=== PATIENT | female | born 1945 | race Hispanic/Latino ===

== ENCOUNTER → 2019-06-07 | Outpatient (CLI) | payer MEDICARE ==
[~2019-06-07] MED LIST: ACET325T51 PO; ATOR10TA69 PO
== END | disposition home or self-care (01) ==
LOC: SHCH 09:51
PROVIDERS: ATTEND Internal Medicine Cardiovascular Disease
DX: I73.9 Peripheral vascular disease, unspecified (principal); I87.2 Venous insufficiency (chronic) (peripheral)
CPT/HCPCS: 93970

== ENCOUNTER → 2019-06-23 | Outpatient (CLI) | payer MEDICARE ==
[~2019-06-23] MED LIST changes: +IOHEXOL 350 MG/ML 100ML INFUS..BTL IV ONE; +IOHEXOL-350 50ML VIAL IV ONE
== END | disposition home or self-care (01) ==
LOC: RAH 07:27
PROVIDERS: ATTEND Internal Medicine Cardiovascular Disease
DX: I70.291 Other atherosclerosis of native arteries of extremities, right leg (principal); I71.4 Abdominal aortic aneurysm, without rupture
CPT/HCPCS: 75635; Q9967 ×2

== ENCOUNTER → 2019-07-11 | Outpatient (CLI) | payer MEDICARE | END | disposition home or self-care (01) | LOC: RAH 07:55 | PROVIDERS: ATTEND Internal Medicine Cardiovascular Disease | DX: I71.4 Abdominal aortic aneurysm, without rupture (principal); K76.0 Fatty (change of) liver, not elsewhere classified; K59.00 Constipation, unspecified; K57.30 Diverticulosis of large intestine without perforation or abscess without bleeding; I70.1 Atherosclerosis of renal artery; I70.298 Other atherosclerosis of native arteries of extremities, other extremity | CPT/HCPCS: 75635; Q9967 ×2 ==

== ENCOUNTER 2022-10-03 10:46 | Emergency (ER) | payer MEDICARE ==
[~2022-10-03] VITALS: Ht 154.9 cm; Wt 61.2 kg
[~2022-10-03 10:46] MED LIST changes: -IOHEXOL 350 MG/ML 100ML INFUS..BTL IV ONE; -IOHEXOL-350 50ML VIAL IV ONE
[2022-10-03] MEDS ORDERED: SOLU-MEDROL 40MG VIAL IJ ONE (11:30)
[2022-10-03] MEDS ORDERED: ELIM560C TP (11:38)
[2022-10-03] MEDS ORDERED: METH4TAB3 PO (11:38)
[2022-10-03 12:28] VITALS: BP 158/72
== END 2022-10-03 13:00 | disposition home or self-care (01) ==
LOC: EDH 10:46
DX: S39.012A Strain of muscle, fascia and tendon of lower back, initial encounter (principal); B86 Scabies; I10 Essential (primary) hypertension; Z79.899 Other long term (current) drug therapy; X58.XXXA Exposure to other specified factors, initial encounter; Y93.89 Activity, other specified; Y92.89 Other specified places as the place of occurrence of the external cause; Y99.8 Other external cause status
CPT/HCPCS: 99283; 96374; J2920

== ENCOUNTER 2023-07-14 10:59 | Emergency (ER) | payer MEDICARE ==
[~2023-07-14] VITALS: Ht 157.5 cm; Wt 56.7 kg
[~2023-07-14 10:59] MED LIST changes: +ELIM560C TP; +METH4TAB3 PO
[2023-07-14 13:01] LABS: BASOPHILS # (AUTO) 0.02 K/uL (0.00-0.20); BASOPHILS % (AUTO) 0.4 % (0.0-5.0); EOSINOPHILS # (AUTO) 0.08 K/uL (0.00-0.70); EOSINOPHILS % (AUTO) 1.5 % (0.0-8.0); IMMATURE GRANULOCYTE ABSOLUTE 0.02 K/uL (0-1); LYMPHOCYTES # (AUTO) 2.1 K/uL (1.0-4.8); LYMPHOCYTES % (AUTO) 39.1 % (21.0-51.0); MEAN CORPUSCULAR HEMOGLOBIN 30.3 pg (27.0-33.0); MEAN CORPUSCULAR HGB CONC 33.8 g/dL (32.0-36.0); MEAN CORPUSCULAR VOLUME 89.5 fL (79-99); MONOCYTES # (AUTO) 0.4 K/uL (0.1-1.0); MONOCYTES % (AUTO) 8.1 % (3.0-13.0); NEUTROPHILS # (AUTO) 2.7 K/uL (1.8-7.7); NEUTROPHILS % (AUTO) 50.5 % (40.0-77.0); PLATELET COUNT (AUTO) 188 K/uL (130-400); RED CELL DISTRIBUTION WIDTH 12.8 % (11.0-15.5); WHITE BLOOD COUNT (AUTO) 5.3 K/uL (4.8-10.8)
[2023-07-14 13:10] LABS: INR < 0.93 (0.85-1.15); PROTHROMBIN TIME 10.7 SEC (9.6-11.6)
[2023-07-14 13:11] LABS: PARTIAL THROMBOPLASTIN TIME 26.5 SEC (26.3-35.5)
[2023-07-14 13:15] LABS: BILIRUBIN,TOTAL 0.4 mg/dL (0.2-1.0); CREATININE 0.8 mg/dL (0.5-1.5); TOTAL PROTEIN, SERUM 7.4 g/dL (6.0-8.3)
[2023-07-14] MEDS ORDERED: POTASSIUM BICARB/CIT AC 25 MEQ TABLET.EFF PO ONE (14:00)
[2023-07-14 14:07] VITALS: BP 132/63; PULSE 72; RESP 17; O2SAT 97
[2023-07-14 14:09] LABS: APPEARANCE,URINE CLEAR (CLEAR); BILIRUBIN,URINE NEGATIVE (NEGATIVE); COLOR,URINE COLORLESS (YELLOW); GLUCOSE, URINE (UA) NEGATIVE (NEGATIVE); KETONES,URINE NEGATIVE (NEGATIVE); LEUKOCYTE ESTERASE ,URINE NEGATIVE Leu/uL (NEGATIVE); NITRATE,URINE NEGATIVE (NEGATIVE); OCCULT BLOOD,URINE NEGATIVE (NEGATIVE); PH,URINE 6.5 (5.0-8.0); PROTEIN,URINE NEGATIVE (NEGATIVE); UROBILINOGEN,URINE 0.2 mg/dL (0.2-1.0)
[2023-07-14 14:10] LABS: ADD UA MICROSCOPIC YES
[2023-07-14] MEDS ORDERED: POTA25TA35 PO (14:11)
[2023-07-14 14:21] LABS: RBC,URINE 0-1 /HPF (0-1); SQUAMOUS EPITHELIAL CELL,UR RARE /HPF (0-2)
== END 2023-07-14 14:25 | disposition home or self-care (01) ==
LOC: EDH 10:59
DX: E87.6 Hypokalemia (principal); R53.1 Weakness; I10 Essential (primary) hypertension; E78.00 Pure hypercholesterolemia, unspecified
CPT/HCPCS: 36415; 70450; 71045; 80053; 81001; 82550; 82948; 83721; 83880; 84484; 85025; 85610; 85730; 93005

== ENCOUNTER 2024-03-14 02:48 | Emergency (ER) | payer MEDICARE, OTHER ==
[~2024-03-14] VITALS: Ht 152.4 cm; Wt 77.1 kg
[~2024-03-14 02:48] MED LIST changes: -ACET325T51 PO; -ATOR10TA69 PO; +ATOR20TA65 PO; +DICL50TA9 PO; +DULO30CA52 PO; -ELIM560C TP; +LOSA1TAB37 PO; -METH4TAB3 PO; +METO25TA6 PO
[2024-03-14] MEDS: TRIAMCINOLONE ACETONIDE 40 MG/ML 1ML VIAL IM ONE (03:27)
[2024-03-14] MEDS: ORPHENADRINE CITRATE 30 MG/ML ML IM ONE (03:28)
[2024-03-14 05:58] VITALS: BP 147/60; PULSE 70; RESP 16; O2SAT 96
[2024-03-14] MEDS ORDERED: LACT10SO85 PO (06:10)
== END 2024-03-14 06:40 | disposition home or self-care (01) ==
LOC: EDH 02:48
DX: K59.00 Constipation, unspecified (principal); M48.56XA Collapsed vertebra, not elsewhere classified, lumbar region, initial encounter for fracture; M19.90 Unspecified osteoarthritis, unspecified site; E78.00 Pure hypercholesterolemia, unspecified; I10 Essential (primary) hypertension; I25.10 Atherosclerotic heart disease of native coronary artery without angina pectoris; Z79.899 Other long term (current) drug therapy
CPT/HCPCS: 99285; 74176; 96372 ×2; J3301; J2360

== ENCOUNTER 2024-04-05 08:25 | Day surgery (SDC) | payer MEDICARE ==
[~2024-04-05] VITALS: Ht 152.4 cm; Wt 68.9 kg
[2024-04-05] VITALS (12 sets, daily range): BP systolic 109–181; BP diastolic 49–85; PULSE 52–62; RESP 14–18
[~2024-04-05 08:25] MED LIST changes: +0.9%NACL 1000ML 1,000 ML IV ONE; -ATOR20TA65 PO; +ATOR40TA69 PO; -DICL50TA9 PO; +LEVO50CA4 PO; -METO25TA6 PO
[2024-04-05] MEDS: 0.9%NACL 1000ML 1,000 ML IV ONE (10:45)
[2024-04-05] MEDS ORDERED: PROPOFOL 10 MG/ML 20ML VIAL IV ONE (11:42)
[2024-04-05] MEDS ORDERED: LIDOCAINE HCL 400MG/20ML VIAL ONE (11:42)
== END 2024-04-05 13:00 | disposition home or self-care (01) ==
LOC: ENDO 08:25 → DAH 08:25 → ENDO 13:00
PROVIDERS: ATTEND Internal Medicine Gastroenterology
DX: R10.13 Epigastric pain (principal); K31.89 Other diseases of stomach and duodenum; K31.A15 Gastric intestinal metaplasia without dysplasia, involving multiple sites; K52.89 Other specified noninfective gastroenteritis and colitis; K29.50 Unspecified chronic gastritis without bleeding; I10 Essential (primary) hypertension; K21.9 Gastro-esophageal reflux disease without esophagitis; E78.00 Pure hypercholesterolemia, unspecified; Z98.890 Other specified postprocedural states; Z98.41 Cataract extraction status, right eye; Z98.42 Cataract extraction status, left eye
CPT/HCPCS: 43239; J3490; J7030 ×2; J2704; A4620; A4215 ×2; A4223; A4657; A4222; A4221; A4663; A4606

== ENCOUNTER 2025-06-24 10:03 | Emergency (ER) | payer SELFPAY ==
[~2025-06-24] VITALS: Ht 152.4 cm; Wt 54.4 kg
[~2025-06-24 10:03] MED LIST changes: -0.9%NACL 1000ML 1,000 ML IV ONE; -LEVO50CA4 PO; +LEVO50CA5 PO
[2025-06-24 10:33] LABS: IMMATURE GRANULOCYTE ABSOLUTE 0.05 K/uL (0-1); NUCLEATED RED BLOOD CELLS 0.0 % (0.0-0.19); PLATELET COUNT (AUTO) 259 K/uL (130-400); RED BLOOD CELL COUNT(AUTO) 4.21 MIL/uL (4.00-5.50); RED CELL DISTRIBUTION WIDTH 14.0 % (11.0-15.5); WHITE BLOOD COUNT (AUTO) 7.4 K/uL (4.8-10.8)
[2025-06-24 10:43] LABS: CREATININE 0.7 mg/dL (0.5-1.0); GLOMERULAR FILTR. RATE CALC 87.0 mL/min (>90); GLUCOSE,RANDOM 98.0 mg/dL (70-105); SODIUM SERUM 139.0 mmol/L (136-145); UREA NITROGEN, BLOOD 17.0 mg/dL (7-18)
[2025-06-24 10:44] LABS: INR <= 0.93 (0.85-1.15)
[2025-06-24] MEDS: HYDROcodone/APAP 5/325 1 TAB TABLET PO ONE (10:55)
--- NOTE | 2025-06-24 11:02 | HMCIMG ---
EXAM: US for Deep Venous Thrombosis, right Lower Extremity. CLINICAL HISTORY: Leg Pain and Swelling TECHNIQUE: Real-time ultrasound scan of the veins of the right lower extremity with color Doppler flow, spectral waveform analysis, and compression. COMPARISON: Study dated 06/07/19. FINDINGS: DEEP VEINS: The common femoral, superficial femoral, and popliteal veins are echolucent and compressible. There is normal color Doppler flow throughout. The visualized calf veins appear patent. SOFT TISSUES: No popliteal fossa cyst or other abnormalities. IMPRESSION: 1. No deep venous thrombosis in the right lower extremity. /[place]
--- NOTE | 2025-06-24 11:11 | HMCIMG ---
EXAM: CR right Femur, 2 View. CLINICAL HISTORY: pain COMPARISON: None provided. FINDINGS: BONES: No acute fracture or aggressive appearing osseous lesion. JOINTS: No dislocation. Mild degenerative changes in the right hip. Moderate degenerative changes in the right knee. SOFT TISSUES: The soft tissues are unremarkable. IMPRESSION: No acute osseous abnormality. /[place]
--- NOTE | 2025-06-24 11:16 | HMCIMG ---
EXAM: CR right Hip, 3 View. CLINICAL HISTORY: pain COMPARISON: None provided. FINDINGS: BONES: No acute fracture or aggressive appearing osseous lesion. JOINTS: No dislocation. Mild degenerative changes in the hips. SOFT TISSUES: The soft tissues are unremarkable. IMPRESSION: No acute osseous abnormality. /[place]
[2025-06-24] MEDS ORDERED: MELO-108 PO (12:13)
--- NOTE | 2025-06-24 12:13 | ERN ---
General Chief Complaint: Lower Extremity Pain/Injury Stated Complaint: RLE PAIN X1 WEEK Time Seen by MD: 10:05 History of Present Illness Initial Comments 80-year-old female who presents for right upper leg and groin pain. She denies any trauma. She reports pain in the right groin in the back of the right leg increase with movement. No increased with palpitation. No swelling. She does have minimal bruising on the medial aspect of her thigh. No fevers or systemic symptoms. She is ambulatory but has not antalgic gait due to the pain. Allergies: Coded Allergies: No Known Allergies (Unverified Allergy, Unknown, 04/19/19) Home Meds Reported Medications Atorvastatin Calcium (LIPITOR) 40 Mg Tablet, 40 MG PO AM, TAB 04/04/24 Levothyroxine Sodium (Levothyroxine) 50 Mcg Capsule, 50 MCG PO AM, CAP 04/04/24 Losartan/Hydrochlorothiazide (Losartan-Hctz 50-12.5 mg Tab) 50 Mg-12.5 Mg Tablet, 1 EACH PO DAILY, TAB 03/04/24 Duloxetine HCl (Duloxetine HCl) 30 Mg Capsule.dr, 30 MG PO DAILY, CAP 03/04/24 Past Medical History Past Medical History: Arthritis, CAD, High Cholesterol, Hypertension Medical History Other: " UNKNOWN CARDIAC" Past Surgical History: Other Surgical History Other: " UNKNOWN CARDIAC" Social History Social History: Lives with family ROS Dictation CONSTITUTIONAL: No chills, no fever, no weakness, no diaphoresis, no malaise. HEAD/FACE: No signs of trauma. EENT: No eye pain, no blurred vision, no tearing, no double vision, no ear pain, no ear discharge, no nose pain, no nasal congestion, no throat pain, no t hroat swelling, no mouth pain. RESPIRATORY: No cough, no orthopnea, no SOB, no stridor, no wheezing. CARDIOVASCULAR: No chest pain, no edema, no palpitations, no syncope. GASTROINTESTINAL/ABDOMINAL: No abdominal pain, no constipation, no diarrhea, n o nausea, no vomiting. GENITOURINARY: No abnormal discharge, no dysuria, no frequent urination, no hematuria. No complaints of pain in the genitals. MUSCULOSKELETAL: Right thigh pain. INTEGUMENTARY: No change in color, no change in hair/nails, no dryness, no lesion, no lumps, no rash. NEUROLOGICAL/PSYCH: No anxiety, not depressed, no emotional problem, no headache, no numbness, no pre-existing deficit, no history of seizures, no tremors, no weakness. HEMATOLOGIC/LYMPHATIC: Not anemic, no history of blood clots, no apparent bleeding, no bruising, glands not swollen. All Systems Negative, Except as Noted. Physical Exam Physical Exam Dictation VITAL SIGNS: Reviewed. GENERAL APPEARANCE: Alert, oriented x3, no acute distress. HEAD AND FACE: Non-traumatic. EYES: PERRL, pink conjunctivas, eyelid no trauma, anterior chamber clear. EARS: Pinnas intact and no signs of trauma or erythema. Ear canals clear and no discharge. TMs no erythema. NOSE: No discharge, no bleeding. OROPHARYNX: Mouth normal, teeth no caries, tongue pink. Pharynx clear, no erythema. Tonsils no exudates, no abscesses noted. Mucous membrane moist. NECK: Supple, non-tender, no thyromegaly, no masses, no JVD, no bruits. BREAST: Deferred. CHEST: No tenderness, no crepitus, no paradoxical movement, no retractions. LUNGS: Clear, well-ventilated, symmetric, no rales, no wheezing, no rhonchi, no stridor, good breath sounds bilaterally. HEART: Regular rate, regular rhythm, no murmur, no gallops. VASCULAR: No peripheral edema. ABDOMEN: Soft, positive bowel sounds, nondistended, no guarding, nontender, no rebound, no masses no hepatomegaly, no splenomegaly, no Moise's sign, no hernias. RECTAL: Deferred. GENITAL: Deferred. NEUROLOGICAL: Normal speech, gross motor function intact, gross sensory function intact. MUSCULOSKELETAL: Neck nontender, full range of motion, back nontender, full range of motion. EXTREMITIES: Nontender, full range of motion. SKIN: Color pink, dry, no turgor, no rash, no lacerations, no abrasions, no contusions. LYMPHATICS: Deferred. Results Laboratory and Microbiology Lab and Micro Result Laboratory Tests Test 06/24/25 10:29 White Blood Count 7.4 K/uL (4.8-10.8) Red Blood Count 4.21 MIL/uL (4.00-5.50) Hemoglobin 12.9 g/dL (12.0-16.0) Hematocrit 38.5 % (36-48) Mean Corpuscular Volume 91.4 fL (79-99) Mean Corpuscular Hemoglobin 30.6 pg (27.0-33.0) Mean Corpuscular Hemoglobin Concent 33.5 g/dL (32.0-36.0) Red Cell Distribution Width 14.0 % (11.0-15.5) Platelet Count 259 K/uL (130-400) Mean Platelet Volume 10.1 fL (7.5-10.5) Immature Granulocyte % (Auto) 0.7 % (0-1) Neutrophils (%) (Auto) 57.7 % (40.0-77.0) Lymphocytes (%) (Auto) 33.4 % (21.0-51.0) Monocytes (%) (Auto) 6.6 % (3.0-13.0) Eosinophils (%) (Auto) 1.2 % (0.0-8.0) Basophils (%) (Auto) 0.4 % (0.0-5.0) Neutrophils # (Auto) 4.3 K/uL (1.8-7.7) Lymphocytes # (Auto) 2.5 K/uL (1.0-4.8) Monocytes # (Auto) 0.5 K/uL (0.1-1.0) Eosinophils # (Auto) 0.09 K/uL (0.00-0.70) Basophils # (Auto) 0.03 K/uL (0.00-0.20) Absolute Immature Granulocyte (auto 0.05 K/uL (0-1) Nucleated Red Blood Cells 0.0 % (0.0-0.19) Prothrombin Time 9.9 SEC (9.6-11.6) Prothromb Time International Ratio <= 0.93 (0.85-1.15) Sodium Level 139 mmol/L (136-145) Potassium Level 3.6 mmol/L (3.5-5.1) Chloride Level 102 mmol/L (101-111) Carbon Dioxide Level 34 mmol/L (21-32) H Blood Urea Nitrogen 17 mg/dL (7-18) Creatinine 0.7 mg/dL (0.5-1.0) Glomerular Filtration Rate Calc 87 mL/min (>90) Random Glucose 98 mg/dL (70-105) Total Calcium 9.0 mg/dL (8.5-10.1) MDM CC: R thigh/upper extremity pain x 1 week Historian: patient Comorbidities: arthritis, advanced age, CAD, DLD, HTN Limitations by social determinates of health: none Ddx: arthritis, MSK pain, DVT, bony abnormality, shingles, etc. VS: HTN, otherwise stable. Labs (independently interpreted by me): CBC, BMP, coags are all normal. Pelvic XR, femur XR (independently interpreted by me): no acute fractures DVT study (independently interpreted by me): no abnormalities Symptoms most consistent with a MSK pain. She received Toradol and [place] here in the ER. No signs of DVT fracture or any other major abnormality no signs of coagulopathy nor DVT. We will DC with meloxicam recommend PCP follow up. ED Course Orders Procedure Category Date Status Time Cbc With Differential LAB 06/24/25 Complete 10:16 Basic Metabolic Panel LAB 06/24/25 Complete 10:16 Prothrombin Time With LAB 06/24/25 Complete INR 10:16 Hip Unilat 2-3vw Right RAD 06/24/25 Resulted 10:16 Us Venous Doppler US 06/24/25 Resulted Unilateral 10:16 Femur 2vw Right RAD 06/24/25 Resulted 10:16 Ketorolac PHA 06/24/25 Complete Tromethamine 15mg/Ml 10:30 Hydrocodone/Apap PHA 06/24/25 Complete 5/325 ([place] 5/325mg) 10:30 Current Medications Medications (Trade) Dose Ordered Sig/[place] Route PRN Reason Start Time Stop Time Status Last Admin Dose Admin Acetaminophen/ Hydrocodone Bitart (NORco 5/325MG) 1 tab ONCE ONCE PO 06/24/25 10:30 06/24/25 10:31 DC 06/24/25 10:55 Ketorolac Tromethamine (toRADol) 15 mg ONCE ONCE IV 06/24/25 10:30 06/24/25 10:31 DC 06/24/25 10:55 Vital Signs Date Time Temp Pulse Resp B/P (MAP) Pulse Ox O2 Delivery O2 Flow Rate FiO2 06/24/25 11:25 52 21 186/76 99 Room Air* 0 21 06/24/25 10:25 52 13 180/79 95 Room Air* 0 21 06/24/25 10:04 98.4 53 20 156/64 99 Room Air 0 DX & DISP Disposition: Discharge Departure Impression: Primary Impression: Musculoskeletal pain Additional Impression: Strain of right hip Condition: Stable Scripts Meloxicam (Meloxicam) 15 Mg Tablet 15 MG PO DAILY PRN for PAIN for 10 Days, #10 TAB Prov: SUMI PORRAS DO 06/24/25 Additional Instructions: Your symptoms are most consistent with a musculoskeletal sprain/strain. Your vital signs are show high blood pressure. Continue with your home blood pressure medications. Your lab work is unremarkable. The x-ray shows some age-appropriate degenerative changes but no acute abn ormalities. The ultrasound shows no signs of blood clots. I have prescribed meloxicam, which is a nonsteroidal anti-inflammatory pain medication. I recommend you take this once a day for the next five days as needed for pain. Use [id number] creams such as Voltaren gel or Byron-Gomez. Please follow up with her primary doctor for further treatment and evaluation if your symptoms do not improve in the next 72 hours or so. Referrals: TORIN LIMON (PCP) SUMI PORRAS DO Jun 24, 2025 12:13
[2025-06-24 13:22] VITALS: BP 175/60; PULSE 55; RESP 15; TEMP 97.8; O2SAT 97
== END 2025-06-24 13:31 | disposition home or self-care (01) ==
LOC: EDH 10:03
DX: S76.011A Strain of muscle, fascia and tendon of right hip, initial encounter (principal); M79.18 Myalgia, other site; E78.00 Pure hypercholesterolemia, unspecified; I10 Essential (primary) hypertension; I25.10 Atherosclerotic heart disease of native coronary artery without angina pectoris; M79.661 Pain in right lower leg; M19.90 Unspecified osteoarthritis, unspecified site; Z79.899 Other long term (current) drug therapy; X58.XXXA Exposure to other specified factors, initial encounter; Y93.89 Activity, other specified; Y92.89 Other specified places as the place of occurrence of the external cause; Y99.8 Other external cause status
CPT/HCPCS: 99285; 96374; 93971; 80048; 85025; 85610; 36415; 73502; 73552; J1885